=== PATIENT | female | born 1970 | race Caucasian/White ===

== ENCOUNTER 2016-08-04 07:15 | Emergency (ER) | payer OTHER ==
[2016-08-04 08:00] LABS: BASOPHIL 0.2 % (0-2); EOSINOPHIL 0.5 % (0-5); HCT 41.6 % (37.0-47.0); HGB 14.1 g/dl (12.5-16.0); LYMPHOCYTE 31.8 % (15-48); MCH 32.2 pg (25.0-31.0); MCHC 33.9 g/dL (32.0-36.0); MONOCYTE 7.8 % (0-12); MPV 10.5 fL (6.0-9.5); NEUTROPHIL 59.7 % (41-80); PLT 224 K/uL (150-400); RBC 4.38 M/uL (4.20-5.40); RDW 14.4 % (11.5-14.0); WBC 6.6 K/uL (4.0-10.5)
[2016-08-04 08:01] LABS: BILIRUBIN NEGATIVE (NEGATIVE); BLOOD NEGATIVE Ery/uL (NEGATIVE); CLARITY CLEAR (CLEAR); COLOR YELLOW (YELLOW); GLUCOSE (U) NORMAL (NORMAL); KETONE (U) NEGATIVE (NEGATIVE); LEUKOCYTES NEGATIVE Leu/uL (NEGATIVE); NITRITE NEGATIVE (NEGATIVE); PROTEIN NEGATIVE (NEGATIVE); SPECIFIC GRAVITY <=1.005 (1.001-1.030); UROBILINOGEN 0.2 mg/dL (0.2-1.0)
[2016-08-04 08:15] LABS: ALBUMIN 4.3 g/dL (3.5-5.0); BILIRUBIN - TOTAL 0.4 mg/dL (0.1-1.0); CREATININE 0.7 mg/dL (0.5-1.0); GLOBULIN (CALCULATION) 2.7 g/dL (2.2-4.2); POTASSIUM 3.8 mmol/L (3.5-5.1)
[2016-08-04 08:19] LABS: CKMB 1.55 ng/mL (0.97-4.94); TROPONIN T < 0.010 ng/mL
== END 2016-08-04 08:46 | disposition home or self-care (01) ==
LOC: FER 07:15
PROVIDERS: Emergency Medicine
DX: R07.89 Other chest pain (principal); R11.0 Nausea; R22.1 Localized swelling, mass and lump, neck; F17.210 Nicotine dependence, cigarettes, uncomplicated; Z88.8 Allergy status to other drugs, medicaments and biological substances
CPT/HCPCS: 36415; 71020; 80053; 81003; 82550; 82553; 84484; 85025; 93005